=== PATIENT | male | born 1970 | race Caucasian/White ===

== ENCOUNTER 2019-08-01 12:54 | Inpatient (IN) | payer SELFPAY ==
[2019-08-01] MEDS ORDERED: Morphine 4 MG/ML VIAL ONE (15:44)
[2019-08-01] MEDS ORDERED: Dexamethasone 4 mg/ml Vial ONE (15:44)
[2019-08-01] MEDS ORDERED: Dexamethasone 4 mg/ml Vial SLOW IVP SCH (18:00)
[2019-08-01] MEDS ORDERED: Labetalol HCl 100 MG/20 ML VIAL SLOW IVP PRN (18:13)
[2019-08-01] MEDS ORDERED: Ondansetron PF 4 MG/2 ML Vial IVP PRN (18:13)
[2019-08-01] MEDS ORDERED: hydrALAZINE 20 MG/ML VIAL SLOW IVP PRN (18:13)
[2019-08-01] MEDS ORDERED: Morphine 2 MG/ML SYRINGE SLOW IVP PRN (18:13)
[2019-08-01] MEDS ORDERED: Ondansetron ODT 4 MG TAB PO PRN (18:13)
[2019-08-01] MEDS ORDERED: Acetaminophen 325 MG TAB PO PRN (18:13)
[2019-08-01] MEDS ORDERED: hydrALAZINE 25 MG TAB PO PRN (18:13)
[2019-08-01] MEDS: Morphine 4 MG/ML VIAL SLOW IVP PRN ×2 (18:35→23:08)
[2019-08-01] MEDS: Dexamethasone 4 mg/ml Vial SLOW IVP SCH ×2 (18:35→23:09)
[2019-08-01] MEDS: Sodium Chloride 0.9% 1,000 ML IV SCH (18:36)
[2019-08-01 19:41] VITALS: BMI 30.5
[2019-08-01] MEDS: HYDROcodone/Acetaminophen 5/325 mg Tablet PO PRN (20:09)
[2019-08-01] MEDS: Gabapentin 300 MG CAP PO SCH (20:13)
--- NOTE | 2019-08-01 22:37 | HP ---
PRIMARY CARE PHYSICIAN: Dr. Ledezma in [place]. CHIEF COMPLAINT: Severe back pain. HISTORY OF PRESENT ILLNESS: Mr. Cochran is a pleasant 49-year-old gentleman, who has no prior past medical history, who says that about 6 weeks ago he woke up having pain in his back one morning. He says the pain was relatively severe. He had gone to his chiropractor who basically treated him that is with a steroid dosepak and ice. He had no relief with this and then he has had this pain off and on and then yesterday the pain got so severe that he barely could walk and stand up. He had to grab for things around the house in order to move around. He went to the urgent care where they gave him a shot of steroids as well as morphine and treated him with a muscle relaxer as well as Tylenol 3, and he was discharged. He went to bed and then woke up this morning with severe pain, which was intractable. He said it was more than a 10/10. He could barely manage to walk. He denies any fevers or chills, however. He denies any bowel or bladder incontinence and he does note some numbness in his left leg, but no left leg or lower extremity weakness. He came to the emergency room in [place] where they did an MRI of his back. There they noticed that he had disk bulge at L4 and L5 and L5 and S1, which was more prominent and he is being admitted for further evaluation. The patient also denies any night sweats and any unintentional weight loss. He denies any type of illicit drug use. REVIEW OF SYSTEMS: All systems were reviewed and are negative except for that mentioned in history of present illness. PAST MEDICAL HISTORY: Negative. PAST SURGICAL HISTORY: He has had surgery for a slipped capsule in the head of his femur. ALLERGIES: ERYTHROMYCIN, WHICH CAUSES HIVES. SOCIAL HISTORY: He is a nonsmoker. He says he occasionally drinks. Denies any illicit drug use. 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 FAMILY HISTORY: Significant for hypertension in his father. Mother is diabetic. MEDICATIONS: Prior to coming to the hospital he was on no medications other than what he was recently given in the ER, which included Tylenol 3 and a muscle relaxer and what sounds like diclofenac. PHYSICAL EXAMINATION: GENERAL: He is alert and oriented. He appears to be in no acute distress. He is well developed and well nourished. VITAL SIGNS: Blood pressure is ranging from about 118 systolic to 154. When he arrived at the ER, there his blood pressure was 148/84, heart rate was in the 70s, respiratory rate is 16. He is afebrile. HEENT: Pupils are equal, round, and reactive to light. Extraocular muscles are intact. His sclerae are anicteric. Throat, no erythema, no exudates. NECK: No adenopathy, no bruits. LUNGS: Clear to auscultation. There is no wheezing, no rales, no rhonchi. CARDIOVASCULAR: There is a normal S1, S2. There is no S3 or S4. No murmurs, clicks, or rubs. ABDOMEN: Soft, it is nontender and nondistended. Positive for bowel sounds. No rebound. No guarding. No organomegaly. EXTREMITIES: There is no clubbing or cyanosis. No edema. NEUROLOGIC: Cranial nerves 2 through 12 are grossly intact. Muscle strength is 5/5 in both his upper and lower extremities. He has positive straight leg raises on the left to about 10 degrees. He is able to dorsiflex and plantar flex both his right and left foot and large toe. SKIN AND INTEGUMENT: There is no skin changes, no rash. LABORATORY DATA: From the outside facility demonstrate a sodium of 140, potassium 4.3, chloride is 107, CO2 is 20, BUN of 28.8, creatinine of 1.4, glucose is 118. White blood cell count is 12.8, hemoglobin 15.5, hematocrit is 46.3, and platelets are 244. Again, he had a MRI of the lumbar spine showing a disk bulge at L4 and L5, 2 mm and also L5 and S1 of 12.5 with some effacement on the S1 nerve root. PLAN/ASSESSMENT: This is a pleasant 49-year-old gentleman who is being admitted for intractable low back pain. He was found to have a herniated disk at L4-L5 and L5 and S1. He will be placed in observation, started on the IV Decadron, morphine for pain control as well as IV antiemetics. 1. Mild dehydration. We will place him on IV fluids due to his high BUN to creatinine ratio. 2. Elevated blood pressure, likely due to pain. We will place him on p.r.n. medications and deep venous thrombosis prophylaxis with sequential compression devices. Job ID: [id number]
[2019-08-02] MEDS: Morphine 4 MG/ML VIAL SLOW IVP PRN ×5 (04:01→20:13)
[2019-08-02] MEDS ORDERED: Fentanyl 100 MCG/2 ML VIAL SLOW IVP SCH (04:21)
[2019-08-02] MEDS: Dexamethasone 4 mg/ml Vial SLOW IVP SCH ×3 (05:14→18:01)
[2019-08-02] MEDS: HYDROcodone/Acetaminophen 5/325 mg Tablet PO PRN ×5 (05:19→22:19)
[2019-08-02 05:21] LABS: #Lymphocytes 0.8 thou/uL (1.20-3.40); #Monocytes 0.2 thou/uL (0.11-0.59); #Neutrophils 10.7 thou/uL (1.40-6.50); %Eosinophils 0.1 % (0.0-10.0); %Lymphocytes 7.1 % (21.0-51.0); %Monocytes 1.9 % (0.0-10.0); %Neutrophils 90.9 % (42.0-75.0); Hemoglobin 15.2 g/dL (14.0-18.0); Mean Corpuscular HGB CONC 33.9 g/dL (32.0-36.0); Mean Corpuscular Hemoglobin 31.2 pg (27.0-31.0); Mean Corpuscular Volume 92.3 fL (78.0-98.0); Mean Platelet Volume 8.1 fL (7.4-10.4); Platelet Count 215 thou/uL (130-400); Red Blood Cell (RBC) Count 4.88 mill/uL (4.70-6.10); White Blood Cell (WBC) Count 11.7 thou/uL (4.8-10.8)
[2019-08-02 05:42] LABS: Anion Gap 14 mmol/L (10-20); BUN (Urea Nitrogen) 25 mg/dL (8.9-20.6); Calc. Creatinine Clearance 109 mL/min (70-130); Calcium 8.7 mg/dL (7.8-10.44); Carbon Dioxide 22 mmol/L (22-29); Chloride 106 mmol/L (98-107); Estimated GFR-MDRD 66; Glucose 123 mg/dL (70-105); Sodium 138 mmol/L (136-145)
--- NOTE | 2019-08-02 06:58 | CON ---
DATE OF CONSULTATION: HISTORY OF PRESENT ILLNESS: The patient is a 49-year-old male who is otherwise healthy, presented to the emergency department as a transfer from [place] for evaluation of progressive back and left sided lumbar radiculopathy. The patient reports symptoms began 6 weeks ago without inciting event. Describes as a sharp stabbing pain down the posterior aspect of the left leg to the lateral aspect of the ankle. He has followed up with his PCP and tried oral steroids without any significant benefit. He has also had chiropractic adjustment without significant relief. He reports that on Monday he had significant worsening of his pain and has been intractable since. He is having difficulty ambulating secondary to the pain. He recently had an MRI done of the lumbar spine in an outside facility brought here on a disc, which is notable for two-level lumbar degenerative disk disease at L4-L5 and L5-S1 with a left-sided disk protrusion at L5-S1. PAST MEDICAL HISTORY: Denies any other medical problems or medications. SOCIAL HISTORY: Does not smoke, drink, or use any drugs. PAST SURGICAL HISTORY: History of bilateral hip surgery. REVIEW OF SYSTEMS: Per HPI. PHYSICAL EXAMINATION: CONSTITUTIONAL: Awake, alert. He is slightly uncomfortable. HEENT: Head, normocephalic and atraumatic. Eyes, PERRLA. Extraocular movements intact. ENT, oral mucosa is pink, intact, and moist. He has normal voice. NECK: Nontender to palpation. RESPIRATORY: Symmetric chest expansion. CARDIOVASCULAR: Regular rate and rhythm. MUSCULOSKELETAL: He has a positive left straight leg raise. No focal motor weakness. No reflex asymmetry. NEURO: A and O x4. No focal neurologic deficits are appreciated. ASSESSMENT AND PLAN: This is a 49-year-old male, otherwise healthy, who presented for intractable left-sided lumbar radiculopathy and found to have two-level degenerative disk disease at L4-L5, L5-S1 with a left-sided disk extrusion at L5-S1. He has been admitted to the Hospitalist Service for pain control and he is also getting IV Decadron 4 q.6. I agree with this plan and added gabapentin 300 mg t.i.d. We will see how he does on these medications and also order physical therapy for the patient. If he improves, he may be able to dismiss at some point and arrange outpatient followup with us. If remains intractable, we may consider surgical intervention or other pain management strategies such as referral for injection. I have discussed with Dr. Linares who is in agreement and will meet with the patient in morning to reassess his progress. Job ID: [id number] MTDD
[2019-08-02] MEDS: Gabapentin 300 MG CAP PO SCH ×3 (08:01→20:10)
[2019-08-02] MEDS: Sodium Chloride 0.9% 1,000 ML IV SCH (08:01)
--- NOTE | 2019-08-02 14:10 | PDOC.HOSPP ---
- Subjective Encounter Date: 08/02/19 Encounter Time: 14:08 Subjective: Mr. Cochran was seen today in follow-up of intractable back pain due to lumbar disc disease. He says he had another episode of severe back pain last night. - Objective Vital Signs & Weight: Vital Signs (12 hours) Temp Pulse Resp BP Pulse Ox 08/02/19 11:30 98.5 F 88 16 149/84 H 98 08/02/19 07:05 98.3 F 76 12 131/76 98 08/02/19 04:04 98.4 F 68 18 122/70 98 Weight Weight 225 lb I&O: 08/01/19 08/02/19 08/03/19 06:59 06:59 06:59 Intake Total 360 Output Total 400 Balance -40 Result Diagrams: 08/02/19 04:57 08/02/19 04:57 Hospitalist ROS - Medication Medications: Active Medications Generic Name Dose Route Start Last Admin Trade Name Freq PRN Reason Stop Dose Admin Hydrocodone Bitart/Acetaminophen 1 tab 08/01/19 18:13 08/02/19 14:03 [place] 5/325 PO 1 tab Q4H PRN Administration Moderate Pain (4-6) Dexamethasone 4 mg 08/01/19 18:00 08/02/19 12:00 Decadron SLOW IVP 4 mg Q6HR GABRIEL Administration Gabapentin 300 mg 08/01/19 21:00 08/02/19 14:03 Neurontin PO 300 mg TID GABRIEL Administration Sodium Chloride 1,000 mls @ 70 mls/hr 08/01/19 18:13 08/02/19 08:01 Normal Saline 0.9% IV 1,000 mls .[id number] GABRIEL Administration Morphine Sulfate 4 mg 08/01/19 18:13 08/02/19 12:00 Morphine SLOW IVP 4 mg Q4H PRN Administration Severe Pain (7-10) - Exam Eye: PERRL Heart: RRR, no murmur, no gallops, no rubs, normal peripheral pulses Respiratory: CTAB, no wheezes, no rales, no ronchi, normal chest expansion, no tachypnea, normal percussion Gastrointestinal: soft, non-tender, non-distended, normal bowel sounds, no palpable masses, no hepatomegaly Extremities: no cyanosis, no edema Musculoskeletal: normal tone (reflexes are intact and symmetric), normal strength, no muscle wasting (able to dorsiflex both feet and all toes bilaterally) Psychiatric: normal affect Hosp A/P (1) Lumbar disc disease Code(s): M51.9 - UNSP THORACIC, THORACOLUM AND LUMBOSACR INTVRT DISC DISORDER Status: Acute (2) Intractable pain Code(s): R52 - PAIN, UNSPECIFIED Status: Acute - Plan * Intractable Pain - He is still having significant symptoms- continue symptom management * Await further recommendations from Neurosurgery
--- NOTE | 2019-08-02 14:11 | PRG ---
DATE OF SERVICE: 08/02/2019 SUBJECTIVE: The patient was seen and examined, I agree with Erika Chacon's evaluation on 08/01/2019. The patient is a 49-year-old man, otherwise in excellent health, who has had six weeks of agonizing left S1 radiculopathy. He tried oral steroids, physical therapy, and chiropractic without lasting relief. MRI scan reveals a large left L5-S1 disk extrusion. IMPRESSION AND PLAN: Left S1 radiculopathy due to L5-S1 disk extrusion. We talked at length about options of surgical microdiskectomy or outpatient epidural steroid injection. He will consider let us know how he choose to proceed. We discussed the indication, risks, benefits, and alternatives of left L5-S1 microdiskectomy. He and his expressed their understanding. All questions were answered. Job ID: [id number]
[2019-08-02] MEDS ORDERED: Fentanyl 100 MCG/2 ML VIAL SLOW IVP PRN (22:17)
[2019-08-03] MEDS: Dexamethasone 4 mg/ml Vial SLOW IVP SCH ×4 (00:07→18:05)
[2019-08-03] MEDS: Morphine 4 MG/ML VIAL SLOW IVP PRN ×6 (00:07→20:01)
[2019-08-03] MEDS: HYDROcodone/Acetaminophen 7.5/325 mg Tablet PO PRN ×6 (02:20→22:01)
[2019-08-03] MEDS: Gabapentin 300 MG CAP PO SCH ×3 (08:02→20:00)
--- NOTE | 2019-08-03 09:30 | PRG ---
DATE OF SERVICE: 08/03/2019 The patient is a 49-year-old male with 6 weeks of intractable left S1 radiculopathy. Dr. Linares went over the patient yesterday and discussed risks, benefits, and alternatives of left L5 through S1 microdiskectomy. The patient has had a chance to think about it and would like to move forward with the surgery. We will plan to do left L5 through S1 microdiskectomy on Monday. I have made the patient n.p.o. at midnight on Monday as well as ordered a preop consent and appropriate labs and EKG. Job ID: [id number]
[2019-08-03 11:03] LABS: INR-International Normal Ratio 1.2; PTT 29.2 SEC (22.9-36.1); Prothrombin Time 15.4 SEC (12.0-14.7)
--- NOTE | 2019-08-03 16:30 | PDOC.HOSPP ---
- Subjective Encounter Date: 08/03/19 Encounter Time: 16:25 Subjective: f/u for severe L-spine pain and radiculopathy with plans for microdiskectomy on 08/05/19. Receiving Morphine, Decadron, Malcolm. - Objective Vital Signs & Weight: Vital Signs (12 hours) Temp Pulse Resp BP Pulse Ox 08/03/19 13:19 98.5 F 86 18 148/85 H 95 08/03/19 07:58 98.3 F 73 14 161/95 H 98 Weight Weight 225 lb I&O: 08/02/19 08/03/19 08/04/19 06:59 06:59 06:59 Intake Total 360 3410 Output Total 400 4550 Balance -40 -1140 Result Diagrams: 08/02/19 04:57 08/02/19 04:57 Hospitalist ROS - Medication Medications: Active Medications Generic Name Dose Route Start Last Admin Trade Name Freq PRN Reason Stop Dose Admin Hydrocodone Bitart/Acetaminophen 1 tab 08/02/19 22:17 08/03/19 14:02 [place] 7.5/325 PO 1 tab Q4H PRN Administration Mild Pain (1-3) Dexamethasone 4 mg 08/01/19 18:00 08/03/19 11:56 Decadron SLOW IVP 4 mg Q6HR GABRIEL Administration Gabapentin 300 mg 08/01/19 21:00 08/03/19 14:02 Neurontin PO 300 mg TID GABRIEL Administration Morphine Sulfate 4 mg 08/01/19 18:13 08/03/19 15:59 Morphine SLOW IVP 4 mg Q4H PRN Administration Severe Pain (7-10) - Exam General Appearance: NAD, awake alert Eye: PERRL, anicteric sclera ENT: normocephalic atraumatic, no oropharyngeal lesions Neck: supple, symmetric, no JVD, no thyromegaly, no lymphadenopathy Heart: RRR, no murmur, no gallops, no rubs, normal peripheral pulses Respiratory: CTAB, no wheezes, no rales, no ronchi, normal chest expansion Gastrointestinal: soft, non-tender, non-distended, normal bowel sounds, no palpable masses Extremities: no cyanosis, no clubbing, no edema Skin: normal turgor, no lesions Neurological: cranial nerve grossly intact, no new deficit Musculoskeletal: normal tone Psychiatric: normal affect, A&O x 3 Hosp A/P (1) Intractable pain Code(s): R52 - PAIN, UNSPECIFIED Status: Acute Plan: L-spine radiculopathy with plans for microdiskectomy 08/05/19, pain control, bowel regimen (2) Lumbar disc disease Code(s): M51.9 - UNSP THORACIC, THORACOLUM AND LUMBOSACR INTVRT DISC DISORDER Status: Acute Plan: See above (3) CKD (chronic kidney disease), stage II Code(s): N18.2 - CHRONIC KIDNEY DISEASE, STAGE 2 (MILD) Status: Chronic Plan: Suspected, continue to encourage increased free-H2O, avoid nephrotoxic agents (4) Dehydration Code(s): E86.0 - DEHYDRATION Status: Acute Plan: Resolving - Plan PT/OT, out of bed/ambulate, DVT proph w/SCDs Stable currently Continue pain control with Morphine Sulfate Continue Gabapentin Contine Dexamethasone OOB with PT Plan for surgical intervention 08/05/19
[2019-08-04] MEDS: Morphine 4 MG/ML VIAL SLOW IVP PRN ×6 (00:25→20:41)
[2019-08-04] MEDS: Dexamethasone 4 mg/ml Vial SLOW IVP SCH ×4 (00:25→18:24)
[2019-08-04] MEDS: HYDROcodone/Acetaminophen 7.5/325 mg Tablet PO PRN ×6 (02:14→22:34)
[2019-08-04] MEDS: Gabapentin 300 MG CAP PO SCH ×3 (08:13→20:40)
--- NOTE | 2019-08-04 10:03 | PRG ---
DATE OF SERVICE: 08/04/2019 The patient is a 49-year-old male, recently evaluated for significant left S1 radiculopathy and found to have a large disk extrusion at L5-S1. There are plans for left-sided lumbar microdiskectomy at L5-S1 tomorrow. He has been made n.p.o. at midnight. His platelets and coags are normal. EKG has also been ordered and all preop orders have been done. I have discussed this with the patient and he remains amenable to surgical plans tomorrow. Anticipate following surgery, he may be able to dismiss later tomorrow afternoon or Monday. Job ID: [id number]
--- NOTE | 2019-08-04 17:07 | PDOC.HOSPP ---
- Subjective Encounter Date: 08/04/19 Encounter Time: 17:00 Subjective: f/u for L-spine radiculopathy and disk herniation. Plans for surgery in am. No new issues reported and no pain unless moving. - Objective Vital Signs & Weight: Vital Signs (12 hours) Temp Pulse Resp BP Pulse Ox 08/04/19 15:08 98.5 F 80 16 146/80 H 97 08/04/19 10:43 98.2 F 77 16 167/95 H 93 L 08/04/19 07:51 98.4 F 66 16 147/97 H 95 Weight Weight 225 lb I&O: 08/03/19 08/04/19 08/05/19 06:59 06:59 06:59 Intake Total 3410 2422 Output Total 3124 4651 Balance -1140 -6655 Result Diagrams: 08/02/19 04:57 08/02/19 04:57 Hospitalist ROS - Medication Medications: Active Medications Generic Name Dose Route Start Last Admin Trade Name Freq PRN Reason Stop Dose Admin Hydrocodone Bitart/Acetaminophen 1 tab 08/02/19 22:17 08/03/19 18:05 [place] 7.5/325 PO 1 tab Q4H PRN Administration Mild Pain (1-3) Hydrocodone Bitart/Acetaminophen 2 tab 08/02/19 22:17 08/04/19 14:39 [place] 7.5/325 PO 2 tab Q4H PRN Administration Moderate Pain (4-6) Dexamethasone 4 mg 08/01/19 18:00 08/04/19 12:15 Decadron SLOW IVP 4 mg Q6HR GABRIEL Administration Gabapentin 300 mg 08/01/19 21:00 08/04/19 14:39 Neurontin PO 300 mg TID GABRIEL Administration Morphine Sulfate 4 mg 08/01/19 18:13 08/04/19 16:34 Morphine SLOW IVP 4 mg Q4H PRN Administration Severe Pain (7-10) - Exam General Appearance: NAD, awake alert Eye: PERRL, anicteric sclera ENT: normocephalic atraumatic, no oropharyngeal lesions Neck: supple, symmetric, no JVD, no thyromegaly, no lymphadenopathy Heart: RRR, no murmur, no gallops, no rubs, normal peripheral pulses Respiratory: CTAB, no wheezes, no rales, no ronchi, normal chest expansion Gastrointestinal: soft, non-tender, non-distended, normal bowel sounds Extremities: no cyanosis, no clubbing, no edema Skin: normal turgor, no lesions Neurological: cranial nerve grossly intact, no new deficit Musculoskeletal: normal tone, normal strength Psychiatric: normal affect, A&O x 3 Hosp A/P (1) Intractable pain Code(s): R52 - PAIN, UNSPECIFIED Status: Acute Plan: Secondary to disc herniation, plan for surgical intervention in am, pain control prn (2) Lumbar disc disease Code(s): M51.9 - UNSP THORACIC, THORACOLUM AND LUMBOSACR INTVRT DISC DISORDER Status: Acute Plan: See above (3) CKD (chronic kidney disease), stage II Code(s): N18.2 - CHRONIC KIDNEY DISEASE, STAGE 2 (MILD) Status: Chronic Plan: Stable, avoid nephrotoxic meds and limit contrast exposure (4) Dehydration Code(s): E86.0 - DEHYDRATION Status: Acute Plan: Resolved - Plan PT/OT, social media job titles, DVT proph w/SCDs Stable currently Continue pain control with Morphine Sulfate Continue Gabapentin Contine Dexamethasone OOB with PT Plan for surgical intervention 08/05/19
[2019-08-05] MEDS: Dexamethasone 4 mg/ml Vial SLOW IVP SCH ×5 (00:49→23:43)
[2019-08-05] MEDS: Morphine 4 MG/ML VIAL SLOW IVP PRN ×2 (00:49→06:35)
[2019-08-05] MEDS: HYDROcodone/Acetaminophen 7.5/325 mg Tablet PO PRN ×3 (02:43→23:43)
[2019-08-05] MEDS ORDERED: CEFAZOLIN 2 GM in Premix Bag 1 BAG IVPB SCH (09:15)
[2019-08-05] MEDS: Gabapentin 300 MG CAP PO SCH ×3 (09:16→20:38)
[2019-08-05] MEDS ORDERED: Morphine 4 MG/ML VIAL ONE (11:41)
[2019-08-05] MEDS ORDERED: Midazolam HCl 2 mg/2 ml Vial ONE (12:21)
[2019-08-05] MEDS ORDERED: tiZANidine HCl 4 MG TAB PO PRN ×2 (14:04→17:42)
[2019-08-05] MEDS ORDERED: Lidocaine 2% Jelly 5 ML TUBE ONE (14:12)
[2019-08-05] MEDS ORDERED: Fentanyl 100 MCG/2 ML VIAL ONE ×4 (14:12→16:02)
[2019-08-05] MEDS ORDERED: Promethazine HCl 25 MG/ML VIAL SLOW IVP PRN (15:36)
[2019-08-05] MEDS ORDERED: Ondansetron HCl/PF 4 MG/2 ML Vial IVP PRN (15:36)
[2019-08-05] MEDS ORDERED: Promethazine HCl 25 MG/ML VIAL IM PRN (15:36)
[2019-08-05] MEDS ORDERED: HYDROmorphone 2 MG/ML VIAL SLOW IVP PRN (15:39)
[2019-08-05] MEDS ORDERED: Glycopyrrolate 0.2 MG/ML 5 ML SYRINGE ONE (16:08)
[2019-08-05] MEDS ORDERED: Dexamethasone 20 MG/5 ML VIAL ONE (16:08)
[2019-08-05] MEDS ORDERED: Rocuronium Bromide 10 MG/ML (10ML VIAL) ONE (16:08)
[2019-08-05] MEDS ORDERED: Ondansetron PF 4 MG/2 ML Vial ONE (16:08)
[2019-08-05] MEDS ORDERED: Lidocaine 1% PF 5 ML VIAL ONE (16:08)
[2019-08-05] MEDS ORDERED: PROPOFOL 200 MG/20 ML VIAL ONE (16:08)
[2019-08-05] MEDS ORDERED: Ketorolac Tromethamine 30 MG/ML VIAL ONE (16:08)
[2019-08-05] MEDS ORDERED: HYDROmorphone 0.5 MG/0.5 ML SYRINGE ONE ×2 (16:32→16:47)
--- NOTE | 2019-08-05 16:58 | OP ---
DATE OF PROCEDURE: 08/05/2019 DEPARTMENT OF MATHEMATICS CHAIR: Surendra Trevizo PA-C PROCEDURE PERFORMED: Left L5-S1 microdiskectomy. DESCRIPTION OF PROCEDURE: The patient was brought to the operating room and intubated. He was rolled in prone position on gel-filled chest rolls. An incision was made exposing L5 and S1 on the left and the level was confirmed by x-ray. We performed left L5-S1 hemilaminectomy via ligament. Identified the left S1 nerve root and then identified an extruded disk herniation at left L5-S1. This was removed in multiple fragments and a complete decompression of left S1 was achieved. The wound was extensively irrigated. MAC hemostasis was secured. Vancomycin powder was applied and the wound closed in anatomic layers. Job ID: [id number]
--- NOTE | 2019-08-05 17:11 | PDOC.HOSPP ---
- Subjective Encounter Date: 08/05/19 Encounter Time: 17:00 Subjective: f/u s/p lumbar laminectomy L5-S1 microdiskectomy. No new complaints. - Objective Vital Signs & Weight: Vital Signs (12 hours) Temp Pulse Resp BP Pulse Ox 08/05/19 11:00 98.7 F 72 16 167/92 H 97 08/05/19 08:00 98 08/05/19 07:12 98.0 F 60 16 152/89 H 98 Weight Weight 225 lb I&O: 08/04/19 08/05/19 08/06/19 06:59 06:59 06:59 Intake Total 2422 1320 Output Total 4632 1999 Balance -2563 -725 Result Diagrams: 08/02/19 04:57 08/02/19 04:57 Hospitalist ROS - Medication Medications: Active Medications Generic Name Dose Route Start Last Admin Trade Name Freq PRN Reason Stop Dose Admin Hydrocodone Bitart/Acetaminophen 1 tab 08/02/19 22:17 08/03/19 18:05 [place] 7.5/325 PO 1 tab Q4H PRN Administration Mild Pain (1-3) Hydrocodone Bitart/Acetaminophen 2 tab 08/02/19 22:17 08/05/19 02:43 [place] 7.5/325 PO 2 tab Q4H PRN Administration Moderate Pain (4-6) Dexamethasone 4 mg 08/01/19 18:00 08/05/19 12:05 Decadron SLOW IVP Not Given Q6HR GABRIEL Gabapentin 300 mg 08/01/19 21:00 08/05/19 15:35 Neurontin PO Not Given TID GABRIEL Morphine Sulfate 4 mg 08/01/19 18:13 08/05/19 06:35 Morphine SLOW IVP 4 mg Q4H PRN Administration Severe Pain (7-10) - Exam General Appearance: NAD, awake alert Eye: PERRL, anicteric sclera ENT: normocephalic atraumatic, no oropharyngeal lesions Neck: supple, symmetric, no JVD, no thyromegaly Heart: RRR, no murmur, no gallops, no rubs, normal peripheral pulses Respiratory: CTAB, no wheezes, no rales, no ronchi, normal chest expansion Gastrointestinal: soft, non-tender, non-distended, normal bowel sounds Extremities: no cyanosis, no clubbing Skin: normal turgor, no lesions Neurological: cranial nerve grossly intact, no new deficit Musculoskeletal: normal tone, normal strength Psychiatric: normal affect, A&O x 3 Hosp A/P (1) Intractable pain Code(s): R52 - PAIN, UNSPECIFIED Status: Acute Plan: Resolved, continue supportive mgmt (2) Lumbar disc disease Code(s): M51.9 - UNSP THORACIC, THORACOLUM AND LUMBOSACR INTVRT DISC DISORDER Status: Acute Plan: s/p L5-S1 microdiskectomy, pain control, OOB with PT, continue Decadron (3) CKD (chronic kidney disease), stage II Code(s): N18.2 - CHRONIC KIDNEY DISEASE, STAGE 2 (MILD) Status: Chronic Plan: Avoid nephrotoxic meds and limit contrast exposure (4) Dehydration Code(s): E86.0 - DEHYDRATION Status: Acute Plan: Resolved - Plan continue antibiotics, PT/OT, licensed social worker, out of bed/ambulate, DVT proph w/ SCDs Stable currently Continue pain control with Morphine Sulfate/[place] Continue Gabapentin Contine Dexamethasone OOB with PT
[2019-08-05] MEDS ORDERED: Morphine 4 MG/ML VIAL SLOW IVP PRN (17:42)
[2019-08-05] MEDS ORDERED: Acetaminophen 325 MG TAB PO PRN (17:42)
[2019-08-05] MEDS ORDERED: HYDROcodone/Acetaminophen 7.5/325 mg Tablet PO PRN ×2 (17:42)
[2019-08-05] MEDS ORDERED: Morphine 2 MG/ML SYRINGE SLOW IVP PRN (17:44)
[2019-08-05] MEDS ORDERED: Ondansetron PF 4 MG/2 ML Vial IM PRN (17:44)
[2019-08-05] MEDS: Ketorolac Tromethamine 30 MG/ML VIAL IVP SCH ×2 (18:09→23:44)
[2019-08-05] MEDS: CEFAZOLIN 2 GM in Premix Bag 1 BAG IVPB SCH (20:38)
[2019-08-06] MEDS: CEFAZOLIN 2 GM in Premix Bag 1 BAG IVPB SCH (04:07)
[2019-08-06] MEDS: Dexamethasone 4 mg/ml Vial SLOW IVP SCH ×3 (05:48→17:37)
[2019-08-06] MEDS: Ketorolac Tromethamine 30 MG/ML VIAL IVP SCH ×2 (05:48→12:05)
[2019-08-06] MEDS: HYDROcodone/Acetaminophen 7.5/325 mg Tablet PO PRN (05:55)
--- NOTE | 2019-08-06 08:18 | PRG ---
DATE OF SERVICE: 08/06/2019 The patient is postoperative day #1, status post left L5-S1 microdiscectomy for a large left-sided herniated disk at L5-S1. I visited the patient at the bedside this morning. He reports he has significant improvement in his left-sided radicular pain. He is moving the leg well in the bed and has negative straight leg raise. No focal weakness appreciated on my exam today. He has not yet walked, but is otherwise tolerating a regular diet and voiding appropriately. His incision is clean, dry, and intact. He is doing quite well and I feel that once he walks, he could be discharged to home later today. I will arrange 2-week followup in our office. I have left prescriptions for Nitro, Zanaflex, and a Decadron taper. Please reach out to Neurosurgery for additional questions or concerns. Job ID: [id number]
[2019-08-06] MEDS: Gabapentin 300 MG CAP PO SCH ×2 (08:45→17:37)
--- NOTE | 2019-08-06 10:33 | EKG ---
Test Reason : Blood Pressure : / mmHG Vent. Rate : 077 BPM Atrial Rate : 077 BPM P-R Int : 170 ms QRS Dur : 072 ms QT Int : 372 ms P-R-T Axes : 055 043 035 degrees QTc Int : 420 ms Normal sinus rhythm Normal ECG No previous ECGs available Confirmed by DAWIT ROMANO, ENDER ([id number]) on 08/06/2019 10:32:57 AM Referred By: BRYSON Confirmed By:ENDER PASTOR MD
[2019-08-06 15:43] VITALS: BP 115/68; TEMP 98.2
--- NOTE | 2019-08-06 17:25 | PDOC.HOSPP ---
- Subjective Encounter Date: 08/06/19 Subjective: Pt seen no complaints active and mobilized feels better - Objective Vital Signs & Weight: Vital Signs (12 hours) Temp Pulse Resp BP Pulse Ox 08/06/19 15:43 98.2 F 99 18 115/68 92 L 08/06/19 11:27 98.3 F 74 16 135/87 96 08/06/19 08:00 98.2 F 70 16 143/78 H 98 Weight Weight 225 lb I&O: 08/05/19 08/06/19 08/07/19 06:59 06:59 06:59 Intake Total 1320 2800 Output Total 1999 3800 Balance -680 -1000 Result Diagrams: 08/02/19 04:57 08/02/19 04:57 Hospitalist ROS - Review of Systems Constitutional: denies: fever Eyes: denies: pain ENT: denies: ear pain Respiratory: denies: cough Cardiovascular: denies: chest pain Gastrointestinal: denies: nausea Genitourinary: denies: dysuria Musculoskeletal: reports: back pain (better) Skin: denies: rash Neurological: denies: weakness - Exam General Appearance: awake alert Eye: anicteric sclera ENT: normocephalic atraumatic Neck: supple Heart: no murmur Respiratory: CTAB Gastrointestinal: soft Extremities: no cyanosis Skin: normal turgor Neurological: cranial nerve grossly intact Musculoskeletal: normal tone Psychiatric: normal affect Hosp A/P - Plan Intractable pain s/p L5-S1 microdiskectomy, pain controled , OOB with PT, continue Decadron, PT/OT, social science instructor, out of bed/ambulate, DVT proph w/ SCDsStable currently Pt advised to keep log Of BP readings out pt
== END 2019-08-06 15:41 | disposition home or self-care (01) | DRG 520 ==
LOC: ERS 12:54 → SJJU 17:35 → OBSVTOIN 17:44
PROVIDERS: ADMIT Internal Medicine; ATTEND Internal Medicine
PROC: 0RBB0ZZ Excision of Thoracolumbar Vertebral Disc, Open Approach (ICD-10-PCS; principal; 2019-08-05)
DX: M51.16 Intervertebral disc disorders with radiculopathy, lumbar region (principal); E86.0 Dehydration; M51.37 Other intervertebral disc degeneration, lumbosacral region; N18.2 Chronic kidney disease, stage 2 (mild); R03.0 Elevated blood-pressure reading, without diagnosis of hypertension
CPT/HCPCS: 36415; 76000; 80048; 85025; 85610; 85730; 93005; 93010; 96374; 96375; J0131; J0690; J1100; J1170; J1885; J2250; J2270; J3010; J3370